=== PATIENT | female | born 1985 | race Caucasian/White ===

== ENCOUNTER 2020-03-01 15:21 | Emergency (ER) | payer OTHER, SELFPAY ==
--- NOTE | 2020-03-01 16:39 | PC.NURSE ---
1525 following registration pt informs staff she is her to obtain a prescription for control pills to help with heavy periods and cramping. informed prescriber could see and evaluate her but could not prescribe control pills. noted pt given handouts related to [facility]/primary care physicians.
== END 2020-03-01 15:25 | disposition left against medical advice (07) ==
PROVIDERS: Emergency Provider Nurse Practitioner
DX: Z53.21 Procedure and treatment not carried out due to patient leaving prior to being seen by health care provider (principal)
CPT/HCPCS: 99199

== ENCOUNTER 2020-06-17 14:21 | Emergency (ER) | payer OTHER, SELFPAY ==
[2020-06-17 14:48] VITALS: BP 121/65; PULSE 90; RESP 16; TEMP 36.4; O2SAT 99
--- NOTE | 2020-06-17 15:24 | ED.DENTAL ---
HPI - Dental/Oral General Chief complaint: Dental/Oral Stated complaint: swollen face from tooth Source: patient Mode of arrival: ambulatory Limitations: no limitations History of Present Illness HPI Narrative: Patient is a 35-year-old female who presents complaining of left upper dental pain x1 day. Patient reports recently seen and treated multiple times at [facility]. She reports she has been having dental work completed but it has been taking an extended period of time. Patient reports left upper dental pain starting yesterday, she reports swelling started this a.m. Patient reports calling dentist who sent patient to urgent care. Related Data Allergies Allergy/AdvReac Type Severity Reaction Status Date / Time meperidine Allergy Mild Unknown Verified 06/17/20 14:55 Review of Systems Review of Systems: Narrative: CONSTITUTIONAL: Denies fever, chills, or sweats. EYES: Denies visual changes, redness, or discharge. ENT: Left upper dental pain and facial swelling CARDIOVASCULAR: Denies chest pain, palpitations, or edema. RESPIRATORY: Denies cough or dyspnea. GASTROINTESTINAL: Denies abdominal pain, nausea, vomiting, or diarrhea. GENITOURINARY: Denies dysuria or hematuria. SKIN: Denies rash or itching. MUSCULOSKELETAL: Denies back pain, joint pain, or myalgia. NEUROLOGIC: Denies headache, numbness, dizziness, or weakness. PSYCHIATRIC: Denies anxiety or depression. PMFSH Past Medical History Medical History No significant past medical history Surgical History Surgical History H/O: Family History Family History (Updated 06/17/20 @ 15:26 by JEREMY Veliz) Other No significant family history Social History Social History (Updated 06/17/20 @ 15:26 by JEREMY Veliz) Smoking status: Current every day smoker Tobacco type: cigarettes Alcohol intake: current Alcohol use details: Occasional Substance use: never Living arrangements: with family Exam Narrative: Exam Narrative: GENERAL: Well-appearing, well-nourished, and in no acute distress. HEAD: Normocephalic, atraumatic. EYES: EOMI. No redness or drainage. Conjunctiva are normal. ENT: Mucous membranes pink and moist. Multiple dental caries and fractures CHEST: No respiratory distress. EXTREMITIES: Normal range of motion. SKIN: Warm, dry, no rash. NEURO: No focal deficits. Alert and oriented x3. Gait steady. PSYCH: Normal affect. No signs of depression or anxiety. Course Vital Signs Vital signs: Vital Signs Temperature 36.4 C 06/17/20 14:48 Pulse Rate 90 06/17/20 14:48 Respiratory Rate 16 06/17/20 14:48 Blood Pressure 121/65 06/17/20 14:48 Pulse Oximetry 99 06/17/20 14:48 Temperature 36.4 C 06/17/20 14:48 Pulse Rate 90 06/17/20 14:48 Respiratory Rate 16 06/17/20 14:48 Blood Pressure 121/65 06/17/20 14:48 Pulse Oximetry 99 06/17/20 14:48 Reviewed MDM - Dental/Oral MDM Narrative Medical decision making narrative: Patient has left upper dental infection at this time. Patient started on antibiotics. Patient to follow-up with dentist in the next week. Patient is stable for discharge to home with outpatient follow-up as discussed. Differential Diagnosis Differential diagnosis: Likely dental caries, toothache, dental abscess and fracture of tooth Critical Care Time Critical Care Time Critical Care Time: No Discharge Plan Discharge Clinical Impression: Dental caries, Dental abscess Patient Disposition: Home, Self-Care Condition: Stable Instructions: Antibiotic Form, Dental Abscess (ED) Additional Instructions: Take antibiotics as directed. You may take Tylenol or ibuprofen for pain. Continue salt water rinses. Follow-up with your dentist in 1 week. If you develop fever, increased swelling to face or other Prescriptions: New clindamy
== END 2020-06-17 15:36 | disposition home or self-care (01) ==
PROVIDERS: Emergency Provider Nurse Practitioner; PCP Physician Assistant
DX: K02.9 Dental caries, unspecified (principal); K04.7 Periapical abscess without sinus; F17.210 Nicotine dependence, cigarettes, uncomplicated
CPT/HCPCS: 99213; G0463

== ENCOUNTER 2020-11-18 10:41 | Emergency (ER) | payer OTHER, SELFPAY ==
[2020-11-18 10:50] VITALS: BP 106/67; PULSE 75; RESP 18; TEMP 36.9; O2SAT 99
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
== END 2020-11-18 11:35 | disposition home or self-care (01) ==
PROVIDERS: Emergency Provider Registered Nurse; PCP Physician Assistant
DX: S09.22XA Traumatic rupture of left ear drum, initial encounter (principal); Y04.8XXA Assault by other bodily force, initial encounter
CPT/HCPCS: 99213; G0463

== ENCOUNTER 2024-03-24 13:30 | Emergency (ER) | payer OTHER, SELFPAY ==
[2024-03-24 13:36] VITALS: BP 127/65; PULSE 68; RESP 16; TEMP 36.8; O2SAT 100
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
[2024-03-24 21:32] LABS: Trichomonas Vag PCR NOT DETECTED (NOT DETECTE)
[2024-03-24 21:59] LABS: Chlamydia trachomatis NOT DETECTED (NOT DETECTE); Neisseria gonorrhoeae PCR NOT DETECTED (NOT DETECTE)
[2024-03-24 22:05] LABS: Chlamydia trachomatis NOT DETECTED (NOT DETECTE); Neisseria gonorrhoeae PCR NOT DETECTED (NOT DETECTE)
== END 2024-03-24 14:54 | disposition home or self-care (01) ==
PROVIDERS: Emergency Provider Registered Nurse; PCP Physician Assistant
DX: Z20.2 Contact with and (suspected) exposure to infections with a predominantly sexual mode of transmission (principal); F17.210 Nicotine dependence, cigarettes, uncomplicated; F31.9 Bipolar disorder, unspecified
CPT/HCPCS: 87491; 87591; 87661; 99213; G0463